=== PATIENT | male | born 1990 | race Caucasian/White ===

== ENCOUNTER 2024-02-10 17:26 | Inpatient (IN) | payer OTHER, SELFPAY ==
[2024-02-10 17:41] VITALS: BP 157/89; PULSE 74; O2SAT 96
[2024-02-10 17:43] VITALS: BMI 36.3
--- NOTE | 2024-02-10 17:44 | ED_ITS ---
HPI - General Adult General Chief complaint: Psychiatric Symptoms Stated complaint: took 8 tabs of LSD, si Time Seen by Provider: 02/10/24 17:44 Source: patient and EMS Mode of arrival: EMS Limitations: no limitations History of Present Illness ED Provider: Juliette Fay PA-C HPI narrative: Patient is a 33 year old assigned male at with a history of mood disorder presenting to the emergency department today with suicidal ideation and LSD use. Patient states that he is chronically suicidal to some extent but it has been much worse lately. Patient states that he was feeling this way before he ingested 5-8 tabs of LSD. Patient states that he is a little nauseous. Patient denies any dizziness, lightheadedness, abdominal pain, vomiting, fever, chills, blurry vision, double vision, loss of vision, chest pain, difficulty breathing, shortness of breath, back pain, night sweats, pain with urination, increased urinary frequency, increased urinary urgency, blood in his urine or stool, syncope or a near syncopal episode, recent trauma or falls, bowel incontinence, bladder incontinence, or any other complaints at this time. Relieving factors: none Exacerbating factors: none Associated symptoms: nausea/vomiting Treatments prior to arrival: none Related Data Home Medications ?Medication ?Instructions ?Recorded ?Confirmed aripiprazole 15 mg tablet (Abilify) 15 mg PO DAILY 02/10/24 02/10/24 cariprazine 3 mg capsule (Vraylar) 3 mg PO DAILY 02/10/24 02/10/24 gabapentin 600 mg tablet 600 mg PO TID 02/10/24 02/10/24 melatonin 3 mg capsule 9 mg PO BEDTIME 02/10/24 02/10/24 multivitamin 1 tab PO DAILY 02/10/24 02/10/24 prazosin 1 mg capsule 1 mg PO BEDTIME 02/10/24 02/10/24 propranolol 20 mg tablet 20 mg PO TID 02/10/24 02/10/24 Allergies Allergy/AdvReac Type Severity Reaction Status Date / Time No Known Allergies Allergy Verified 02/10/24 17:45 Review of Systems 2 Constitutional: Constitutional: Reports no additional constitutional complaints, Denies chills, Denies fever(s) and Denies night sweats Eyes: Eyes: Reports no additional eye complaints, Denies blurry vision, Denies change in vision, Denies diplopia, Denies eye discharge, Denies loss of vision and Denies eye pain ENT: Denies dizziness Cardiovascular: Cardiovascular: Reports no additional cardiovascular complaints, Denies chest pain, Denies lightheadedness, Denies Loss of Consciousness and Denies dyspnea Respiratory: Respiratory: Reports no additional respiratory complaints and Denies dyspnea Gastrointestinal: Gastrointestinal: Reports no additional gastrointestinal complaints, Denies abdominal pain, Denies melena, Denies hematochezia, Denies change in bowel habits and Denies change in stool character Genitourinary: Genitourinary: Reports no additional male genitourinary complaints, Denies hematuria, Denies oliguria, Denies difficulty urinating, Denies dysuria, Denies urinary frequency, Denies urinary hesitancy, Denies urinary incontinence and Denies urinary urgency Musculoskeletal: Musculoskeletal: Reports no additional musculoskeletal complaints, Denies numbness and Denies tingling Neurologic: Denies dizziness, Denies loss of vision, Denies numbness and Denies tingling Psychiatric: Psychiatric: Denies homicidal ideation and Reports suicidal ideation Endocrine: Endocrine: Reports no additional endocrine complaints Hematologic/Lymphatic: Hematologic/Lymphatic: Reports no additional hematologic/lymphatic complaints Allergic/Immunologic: Allergic/Immunologic: Reports no additional allergic/immunologic complaints PMFSH Past Medical History Attestation statement: The following information was validated with the patient. Source: old records reviewed and nursing notes reviewed Social History Social History Smoked in Last 30 Days: Yes Use of substances other than those prescribed or required for medical reasons: Yes Substance Use Type: Hallucinogens Substance Use Frequency: Recent Binge Last Used Substance: Hours (ago) Advance Directives: No Advance Directives Information Provided: No Do you have a plan to hurt others: No Plan Physical Exam ED Vital Signs: Vital Signs - 24 hr 02/10/24 20:05 Temperature 97.4 F Pulse Rate 68 Respiratory Rate 16 Blood Pressure 137/81 Pulse Oximetry 94 Oxygen Delivery Method Room Air BMI result Body Mass Index 36.3 Const General: cooperative, no acute distress, alert and awake Nutritional Appearance: well nourished Orientation/consciousness: patient oriented x3 Limitations: no limitations HENMT Head: Yes normal to inspection and Yes atraumatic Ears: hearing grossly normal bilaterally and external ears normal General nose exam: Normal external nose present, no nasal discharge noted and no epistaxis Face and sinus: Yes normal facial exam, No abrasion and No laceration Mouth: Normal oral and palatal mucosa present, no drooling and no muffled voice Eyes General: appearance normal, both eyes and all related structures Periorbital: periorbital findings normal Eyelids: Yes eyelids normal Conjunctivae: conjunctivae normal Pupils: Equal, round and reactive pupils present EOM: EOMs intact bilaterally Neck Neck: Yes normal visual inspection, Yes full ROM and Yes no lymphadenopathy Chest Chest palpation & inspection: normal inspection of the chest Resp Effort & Inspection: normal respiratory effort and able to speak in complete sentences GI Inspection: Yes normal to inspection Neuro General: patient oriented x3 and moves all extremities Cranial nerves: Yes Equal, round and reactive pupils present Cognition (Neuro): normal cognition Extrem General: Yes normal to inspection, Yes full ROM and Yes capillary refill normal Psych Appearance: grossly normal Mental Status: mental status grossly normal Affect: Sad affect present Attitude: cooperative Thought process: Normal thought process present Thought content: Suicidality present Medications Administered Discontinued Medications Generic Name Dose Route Start Last Admin Trade Name Candida PRN Reason Stop Dose Admin Lorazepam 1 mg 02/10/24 19:42 02/10/24 20:02 Lorazepam 1 Mg Tablet PO 02/10/24 19:43 1 mg ONCE ONE Administration Medical Decision Making Medical Decision Making [facility] Narrative: Patient is a 33 year old assigned male at with a history of a mood disorder presenting to the emergency department today with suicidal ideation and LSD use. Patient's physical exam was as noted in the physical exam portion of this note. Patient's blood work was unremarkable. Patient's urine showed no acute process. Patient's EKG was unremarkable. I explained my physical exam findings as well as all test results to the patient. I answered all questions asked by the patient. Patient was given ODT Zofran and PO Ativan while in the department which he stated helped his symptoms. Patient requested I call his father, Garfield, at [phone]. Unfortunately, he did not answer - I did leave a voicemail requesting him to call back but have not heard back from him at this time. Patient will remain in physician observation until he is evaluated by the CARE team to determine disposition. Differential Diagnosis Differential Diagnoses: The differential diagnosis associated with the presentation includes LSD use Suicidal ideation Depression Admission/Observation Consideration of admission/observation: Escalation of care including admission/observation considered Patient's disposition will be determined after CARE team evaluation. Lab Data [facility] Lab Attestation statement: I reviewed the patient's lab results. My interpretation of these results are in the [facility] Rationale portion of this note. 02/10/24 20:04 02/10/24 20:04 Labs: Lab Results 02/10/24 02/10/24 Range/Units 18:30 20:04 WBC 7.1 (4.8-10.8) X10*3/uL RBC 5.77 (4.60-5.80) X10*6/uL Hgb 16.4 (14.0-18.0) g/dl Hct 46.3 (42.0-52.0) % MCV 80.2 (80.0-98.0) fL MCH 28.4 (27.0-33.0) pg MCHC 35.4 (31.0-36.0) g/dl RDW 12.6 (11.0-16.0) % Plt Count 146 L (160-400) X10*3/uL MPV 8.6 L (9.4-12.4) fL Immature Gran % (Auto) 0.4 (0.0-0.4) % Neut % (Auto) 68.4 (45-73) % Lymph % (Auto) 23.5 (20-40) % [place] % (Auto) 5.5 (2-11) % Eos % (Auto) 1.8 (0-4) % Baso % (Auto) 0.4 (0-2) % Lymph # (Auto) 1.7 (1.2-4.9) X10*3/uL [place] # (Auto) 0.4 (0.1-1.2) X10*3/uL Eos # (Auto) 0.1 (0.0-0.4) X10*3/uL Baso # (Auto) 0.0 (0.0-0.2) X10*3/uL Abs Immat Gran (auto) 0.03 (0.00-0.03) X10*3/uL Absolute Neuts (auto) 4.9 (2.0-8.3) x10*3/uL Absolute Nucleated RBC 0.000 (0.0-0.012) X10*3/uL Nucleated RBC % (auto) 0.0 (0.0-0.2) /100WBC Sodium 141 (135-145) mmol/L Potassium 3.8 (3.3-5.1) mmol/L Chloride 108 (96-108) mmol/L Carbon Dioxide 22 (22-29) mmol/L Anion Gap 15 (12-20) BUN 12 (9-16) mg/dL Creatinine 0.83 (0.5-1.4) mg/dL Estim Creat Clear Calc 166.9 Estimated GFR > 60 Random Glucose 125 H (60-115) mg/dL Calcium 9.6 (8.4-10.2) mg/dL Total Bilirubin 1.1 H (0.0-1.0) mg/dL AST 29 (5-37) U/L ALT 61 H (0-40) U/L Alkaline Phosphatase 64 (39-117) U/L Total Protein 7.4 (6.5-8.0) g/dL Albumin 4.7 (3.5-5.0) g/dL Urine Color Yellow Urine Appearance Clear Urine pH 7.0 (5.0-9.0) Ur Specific [place] 1.020 (1.005-1.025) Urine Protein Negative (Neg-Trace) mg/dL Urine Glucose (UA) Negative (Negative) mg/dL Urine Ketones Negative (Negative) mg/dL Urine Blood Negative (Negative) Urine Nitrite Negative (Negative) Ur Leukocyte Esterase Negative (Negative) Urine Opiates Screen Not Detected (Not Detect) Ur Buprenorphine Scrn Not Detected (Not Detect) ng/mL Ur Oxycodone Screen Not Detected (Not Detect) ng/mL Urine Methadone Screen Not Detected (Not Detect) ng/mL Urine Fentanyl Screen Not Detected (Not Detect) Ur Barbiturates Screen Not Detected (Not Detect) Ur Phencyclidine Scrn Not Detected (Not Detect) Ur Amphetamines Screen Not Detected (Not Detect) U Benzodiazepines Scrn Not Detected (Not Detect) Urine Cocaine Screen Not Detected (Not Detect) U Marijuana (THC) Screen Not Detected (Not Detect) Ethyl Alcohol < 10 mg/dL Independent Interpretation I performed an independent interpretation of an: EKG Interpretation: Vent. Rate: 060 BPM Atrial Rate: 060 BPM P-R Int: 144 ms QRS Dur: 092 ms QT Int: 410 ms P-R-T Axes: 069 049 038 degrees QTc Int: 410 ms Normal sinus rhythm with sinus arrhythmia Normal ECG No previous ECGs available DD/ 34 Independent Historian Clinical information obtained from an independent historian. History obtained from or confirmed by: EMS (EMS provided additional history and confirmed the history provided by the patient.) Critical Care Time Critical Care Time Critical Care Time: Yes Total Critical Care Time: 32 Attestation: I spent 32 minutes of Critical Care Time with this patient. This does not include time spent on separately reported billable procedures. Discharge Plan Discharge Clinical Impression: Suicidal ideation, Lysergic acid diethylamide (LSD) reaction Patient Disposition: Still a Patient Prescriptions: No Action multivitamin [Multi-Vitamin] Tablet 1 tab PO DAILY gabapentin 600 mg Tablet 600 mg PO TID prazosin 1 mg Capsule 1 mg PO BEDTIME propranolol 20 mg Tablet 20 mg PO TID aripiprazole [Abilify] 15 mg Tablet 15 mg PO DAILY Vraylar 3 mg Capsule 3 mg PO DAILY melatonin 3 mg Capsule 9 mg PO BEDTIME Interventions: [place]-Suicide Risk Severity Scale Last Done: 02/10/24 17:50 Print Language: Setswana
--- NOTE | 2024-02-10 17:51 | PC.NURSE ---
Patient took 2 tabs of acid at approx 1500 and then another 6 tabs of acid at approx 1600 today. Patient reporting incident as a cry for help . Denies acid use as suicide attempt. Does endorse SI with no plan.
--- NOTE | 2024-02-10 17:52 | ECG_ITS ---
Test Reason : qt check Blood Pressure : / mmHG Vent. Rate : 060 BPM Atrial Rate : 060 BPM P-R Int : 144 ms QRS Dur : 092 ms QT Int : 410 ms P-R-T Axes : 069 049 038 degrees QTc Int : 410 ms Normal sinus rhythm with sinus arrhythmia Normal ECG No previous ECGs available Referred By: Juliette Fay Electronically Signed By:Frandy De La Vega
[2024-02-10 18:36] LABS: Appearance Urine Clear; Color Urine Yellow; Glucose Urine UA Negative (Negative); Leukocyte Esterase Urine Negative (Negative); Nitrite Urine Negative (Negative); Urine Blood Negative (Negative); Urine Ketones Negative (Negative); Urine Protein Negative (Neg-Trace)
[2024-02-10 18:53] LABS: Amphetamine Screen Urine Not Detected (Not Detect); Barbiturates, Urine Not Detected (Not Detect); Benzodiazepines Screen Urine Not Detected (Not Detect); Buprenorphine Scr Not Detected (Not Detect); Cannabinoid Screen Urine Not Detected (Not Detect); Cocaine Screen Urine Not Detected (Not Detect); Fentanyl, urine Not Detected (Not Detect); Methadone Screen, Urine Not Detected (Not Detect); Opiate Screen Urine Not Detected (Not Detect); Oxycodone Screen Urine Not Detected (Not Detect); Phencyclidine Screen Urine Not Detected (Not Detect)
--- NOTE | 2024-02-10 19:05 | PC.NURSE ---
patient appears to be laying flat on his bed, appears in no distress presently prior nurse informs me he had ingested hallucinogenics, appears in no distress presently.
--- NOTE | 2024-02-10 19:53 | MHC.CARE ---
Security Assurance Analyst approached patient in POd to introduce self-patient states 'I am not sober right now' and requests to talk with clinician later. Reports distressing level of paranoia and anxiety; RN aware and is awaiting MD order for patient. Patient not currently clinically appropriate to assess.
[2024-02-10] MEDS: LORazepam 1 MG TABLET PO (20:02)
[2024-02-10 20:05] VITALS: BP 137/81; PULSE 68; RESP 16; TEMP 36.3; O2SAT 94
[2024-02-10 20:14] LABS: Hematocrit 46.3 % (42.0-52.0); Neutrophils Absolute Auto 4.9 x10*3/uL (2.0-8.3); PLT CLUMP 1; Red Cell Distribution Width 12.6 % (11.0-16.0); SCAN SMEAR FLAG 1
[2024-02-10 20:15] LABS: Basophils Percent Auto 0.4 % (0-2); Eosinophils Absolute Auto 0.1 X10*3/uL (0.0-0.4); Eosinophils Percent Auto 1.8 % (0-4); Hemoglobin 16.4 g/dl (14.0-18.0); Imm Gran Abs Auto 0.03 X10*3/uL (0.00-0.03); Imm Gran Pct Auto 0.4 % (0.0-0.4); Lymphocytes Absolute Auto 1.7 X10*3/uL (1.2-4.9); Lymphocytes Percent Auto 23.5 % (20-40); Mean Corpuscular HGB Conc 35.4 g/dl (31.0-36.0); Mean Corpuscular Hemoglobin 28.4 pg (27.0-33.0); Mean Corpuscular Volume 80.2 fL (80.0-98.0); Mean Platelet Volume 8.6 fL (9.4-12.4); Monocytes Absolute Auto 0.4 X10*3/uL (0.1-1.2); Monocytes Percent Auto 5.5 % (2-11); Neutrophils Percent Auto 68.4 % (45-73); Red Blood Count 5.77 X10*6/uL (4.60-5.80)
[2024-02-10 20:32] LABS: Alanine Aminotransferase 61 U/L (0-40); Albumin Level 4.7 g/dL (3.5-5.0); Alkaline Phosphatase 64 U/L (39-117); Anion Gap 15 (12-20); Aspartate Amino Transferase 29 U/L (5-37); Bilirubin Total 1.1 mg/dL (0.0-1.0); Blood Urea Nitrogen 12 mg/dL (9-16); Calcium 9.6 mg/dL (8.4-10.2); Carbon Dioxide 22 mmol/L (22-29); Chloride 108 mmol/L (96-108); Creatinine Clr Calc Pharmacy 166.9; Estimated Glomerular Filt Rate > 60; Ethanol < 10 mg/dL; Glucose Random 125 mg/dL (60-115); MANUAL DIFF FLAG NO; Platelet Count 146 X10*3/uL (160-400); Potassium 3.8 mmol/L (3.3-5.1); Sodium 141 mmol/L (135-145); Total Protein 7.4 g/dL (6.5-8.0); White Blood Count 7.1 X10*3/uL (4.8-10.8)
--- NOTE | 2024-02-10 20:33 | MHC.CARE ---
Collateral contact made to patient's father Killian Land. He reports that he and his received an emailed suicide note from patient at approximately 4.45 pm this afternoon, which was prior to his ingesting multiple tablets of LSD in a Suicide Attempt. Father reports patient has struggled with mental health and polysubstance use issues since he was in high school and has had at least 3-4 attempts by overdose and multiple intervention(s)/treatment(s) over the years;most recently he self-presented to court for a Section 35 and has been residing at [facility] for the past 1-2 months. Patient has a 12 year-old daughter who is currently being raised by his parents due to his ongoing mental health and substance use issues and this is an ongoing, precipitant factor impacting his negative feelings about himself. Due to content of conversation with patient's father, program writer placed patient on a Section 12a and placed in chart. ED Attending Rosemary Marshall MD updated. Patient is not clinically appropriate to be assessed at time of collateral contact. Will assess when able to participate meaningfully and when sober, and per patient request.
[2024-02-10 20:38] LABS: Acetaminophen LAB < 3 mcg/mL (<30); Salicylate < 5.0 mg/dL (15-30)
[2024-02-10] MEDS: Gabapentin 600 MG TABLET PO (21:56)
[2024-02-10] MEDS: Melatonin 3 MG TABLET 9 MG PO (21:56)
[2024-02-10] MEDS: Propranolol HCL 20 MG TABLET PO (21:58)
[2024-02-10] MEDS: Prazosin HCL 1 MG CAPSULE PO (21:58)
[2024-02-11 05:09] VITALS: BP 119/70; PULSE 60; TEMP 36.3; O2SAT 94
--- NOTE | 2024-02-11 06:54 | PC.NURSE ---
Assumed care of patient at 0645. Patient is observed resting quietly in their bed. No signs of distress. Breathing is even and unlabored.
[2024-02-11 07:44] VITALS: BP 116/71; PULSE 79; RESP 16; TEMP 36; O2SAT 95
--- NOTE | 2024-02-11 08:23 | MHC.EDTECH ---
Patient given breakfast
[2024-02-11] MEDS: Gabapentin 600 MG TABLET PO ×3 (08:26→20:37)
[2024-02-11] MEDS: Cariprazine HCl 3 MG CAPSULE PO (08:26)
[2024-02-11] MEDS: Propranolol HCL 20 MG TABLET PO ×3 (08:26→20:37)
[2024-02-11] MEDS: Multivitamin TABLET 1 TAB PO (08:26)
--- NOTE | 2024-02-11 08:28 | MHC.EDTECH ---
Patient took a shower
[2024-02-11] MEDS: ARIPiprazole 15 MG TABLET PO (09:17)
[2024-02-11] MEDS: hydrOXYzine HCL 50 MG TABLET PO ×3 (10:50→20:37)
[2024-02-11 14:32] VITALS: BP 108/63; PULSE 88; RESP 18; TEMP 36.7; O2SAT 97
[2024-02-11 20:35] VITALS: BP 102/64; PULSE 64; RESP 16; TEMP 37.2; O2SAT 98
[2024-02-11] MEDS: Prazosin HCL 1 MG CAPSULE PO (20:37)
[2024-02-11] MEDS: Melatonin 3 MG TABLET 9 MG PO (20:38)
[2024-02-12 02:13] VITALS: BP 107/70; PULSE 74; RESP 16; TEMP 37.1; O2SAT 98
--- NOTE | 2024-02-12 05:25 | PC.NURSE ---
Pt sleeping at the bedside. No apparent distress noted. Breaths are even regular and unlabored with equal chest rises. Monitoring is ongoing.
[2024-02-12] MEDS: Gabapentin 600 MG TABLET PO ×3 (07:15→21:34)
[2024-02-12] MEDS: hydrOXYzine HCL 50 MG TABLET PO ×4 (07:15→21:34)
[2024-02-12] MEDS: Cariprazine HCl 3 MG CAPSULE PO (07:16)
[2024-02-12] MEDS: Multivitamin TABLET 1 TAB PO (07:16)
[2024-02-12 07:17] VITALS: BP 107/69; PULSE 63
[2024-02-12] MEDS: Propranolol HCL 20 MG TABLET PO ×3 (07:17→21:34)
[2024-02-12] MEDS: ARIPiprazole 15 MG TABLET PO (08:14)
[2024-02-12 08:38] VITALS: BP 107/69; PULSE 76; RESP 16; TEMP 36.6; O2SAT 94
--- NOTE | 2024-02-12 11:23 | PC.NURSE ---
per provider okay to give hydroxzine early
--- NOTE | 2024-02-12 12:17 | PC.NURSE ---
mainly has kept in his room, asked for morning meds early as he was anxious and again asked for atarax early as he was anxious, Dr Dockery informed and said it was ok to give the 1pm vistaril early. pt has been polite and cooperative and appears calm
[2024-02-12 14:00] VITALS: BP 117/65; PULSE 81; RESP 18; TEMP 36.4; O2SAT 98
[2024-02-12 16:39] VITALS: BP 117/65; PULSE 83
--- NOTE | 2024-02-12 16:59 | PC.ADMIT ---
Thuan Land is a 33 year old male who was admitted at 13:50 from [facility] for treatment of SI. Thuan ingested LSD just prior to admission after 5 months of sobriety from substance and alcohol use. He remains sober from alcohol. Thuan states stressors leading to this admission include arguing with his parents over visitation of his 12 year old daughter from which his parents retain custody of. Thuan states that frustration lead to relapse and threats of suicide including writing a note to his parents. Thuan still has some vague SI with no plan as of today and will seek help if the circumstances change. Thuan was residing at [facility] in [place] prior to admission and is unsure if he will be welcomed back or if he wants to go back for that matter, he does not like the rules that the house has and feels that sober housing may be better. Skin check was unremarkable accept for mild break out on his chest which he thinks may be from EKG adhesive but does not align with sticker placement. VS taken, WNL. Thuan presents as flat and subdued, but pleasant. No behaviors reported in the ED or on the unit once oriented. Thuan signed a CV on admission and is placed on 15 minute checks for safety. Admission completed.
[2024-02-12] MEDS: Nicotine Polacrilex 2 MG GUM 4 MG BUCCAL (17:38)
[2024-02-12 20:00] VITALS: BP 122/68; PULSE 82; RESP 17; TEMP 36.7; O2SAT 98
[2024-02-12] MEDS: Melatonin 3 MG TABLET 9 MG PO (21:34)
[2024-02-12] MEDS: traZODone HCL 50 MG TABLET PO (21:35)
[2024-02-12] MEDS: Prazosin HCL 1 MG CAPSULE PO (21:35)
[2024-02-13 08:00] VITALS: BP 117/62; PULSE 59; RESP 16; TEMP 36.4; O2SAT 93
[2024-02-13 08:52] VITALS: BP 114/60; PULSE 102; RESP 16
[2024-02-13 08:54] LABS: Estimated Average Glucose 103 mg/dL; Hemoglobin A1c % 5.2 % (<6.0)
[2024-02-13] MEDS: Propranolol HCL 20 MG TABLET PO ×3 (08:55→20:57)
[2024-02-13] MEDS: Multivitamin TABLET 1 TAB PO (08:55)
[2024-02-13] MEDS: hydrOXYzine HCL 50 MG TABLET PO ×4 (08:55→20:57)
[2024-02-13] MEDS: Cariprazine HCl 3 MG CAPSULE PO (08:55)
[2024-02-13] MEDS: Gabapentin 600 MG TABLET PO ×3 (08:55→20:56)
[2024-02-13] MEDS: ARIPiprazole 15 MG TABLET PO (08:55)
[2024-02-13 09:01] LABS: Cholesterol 142 mg/dL (<200); HDL Cholesterol 37 mg/dL (>40); LDL Cholesterol Calculated 68 mg/dL (<100); Magnesium 2.1 mg/dL (1.6-2.6); Triglycerides 185 mg/dL (<150)
[2024-02-13 09:31] LABS: Folate 10.1 ng/mL (> or = 4.0); Vitamin B12 793 pg/mL (200-900)
[2024-02-13 09:54] LABS: Free T4 (Free Thyroxine) 0.96 ng/dL (0.71-1.85); Thyroid Stimulating Hormone 1.23 uIU/mL (0.32-4.0)
--- NOTE | 2024-02-13 10:59 | HO.PSYADMNOT ---
HPI Date of Service: 02/13/24 Chief Complaint: LSD ingestion, SI Sources of Information: patient interviewed, chart reviewed and crisis/core team assessment reviewed HPI Subjective Notes: Ndiaye Warning and Conditional Voluntary Healthcare Proxy: No Guardianship: No Medical Problems Affecting Mental Status: No Narrative: 33 yo male, history of bipolar disorder, ADHD, polysubstance use disorder to ER after taking LSD, sending his parents emails endorsing SI with plan and intent. Reports sobriety for 5 months, living at [facility] for ~2 months and is not satisfied with the program. Parents have custody of his daughter, Gina, age 12, and will not allow him contact with her and they have stopped talking with him, telling him he needs to manage his issues. States he became angry with them, cursed them was frustrated and wrote a suicide note as a cry for help. States he needs a sober house or [facility] as [facility] is just not working for him. States his parents have told him he needs to figure out solutions to his issues and they feel victimized by pt's using substances Reports sleep and appetite are intact Hx andres ~8 years ago when on Prozac-gambling, sexually provocative, awake and talkative for several days SI-denies currently, hx SA when daughter's mother - OD Xanax, ETOH. Past Psychiatric History: IP: Pt believes 5 by history, the most recent being [facility] 4 months ago where he was using crystal meth was awake for 4 days and paranoid OP: CHD- new therapist [facility] and Dr. Langston Medical Evaluation Reviewed: Yes [facility] Medical History (Updated 02/13/24 @ 17:25 by Ann Bowling, GANTRY CRANE OPERATOR) ADHD Polysubstance use disorder Bipolar disorder Family History: a cousin has substance use issues Social History: Born in [place], [place]. Raised in [place] until age 17, then to [place]. 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 Daughters mother of an OD ~6 years ago. 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[place] [facility] Trauma History: Loss of daughter's mother Diagnostics Vital Signs (24Hr): Vital Signs - 24 hr 02/12/24 14:00 02/12/24 16:39 02/12/24 20:00 Temperature 97.6 F 98.0 F Pulse Rate 81 83 82 Respiratory Rate 18 17 Blood Pressure 117/65 117/65 122/68 Pulse Oximetry 98 98 Oxygen Delivery Method Room Air Room Air 02/13/24 08:00 02/13/24 08:52 Temperature 97.5 F Pulse Rate 59 102 H Respiratory Rate 16 16 Blood Pressure 117/62 114/60 Pulse Oximetry 93 Oxygen Delivery Method Room Air BMI result Body Mass Index 36.3 Labs 02/10/24 20:04 02/10/24 20:04 Labs: Laboratory Results - last 48 hr 02/13/24 08:27 Estimat Average Glucose 103 Hemoglobin A1c % 5.2 Magnesium 2.1 Triglycerides 185 H Cholesterol 142 LDL Cholesterol, Calc 68 HDL Cholesterol 37 L Vitamin B12 793 Folate 10.1 TSH 1.23 Free T4 0.96 Meds/Allergies Meds Home Medications ?Medication ?Instructions ?Recorded ?Confirmed ?Type aripiprazole 15 mg tablet (Abilify) 15 mg PO DAILY 02/10/24 02/10/24 History cariprazine 3 mg capsule (Vraylar) 3 mg PO DAILY 02/10/24 02/10/24 History gabapentin 600 mg tablet 600 mg PO TID 02/10/24 02/10/24 History melatonin 3 mg capsule 9 mg PO BEDTIME 02/10/24 02/10/24 History multivitamin 1 tab PO DAILY 02/10/24 02/10/24 History prazosin 1 mg capsule 1 mg PO BEDTIME 02/10/24 02/10/24 History propranolol 20 mg tablet 20 mg PO TID 02/10/24 02/10/24 History Allergies Allergies Allergy/AdvReac Type Severity Reaction Status Date / Time bupropion [From Wellbutrin] AdvReac Severe agitation Verified 02/13/24 17:17 Mental Status Exam Mental Status Exam Patient Appearance: Appropriate Patient Orientation: Person, Place, Time and Situation Level of Consciousness: Alert Patient Behavior: Talkative and Good Eye Contact Mood Description: Withdrawn and Depressed Affect Description: Flat Patient Cognition Impaired: No Speech Pattern: Spontaneous Speech Memory Description: Intact Hallucinations: None Delusions: Not Present Thought Process: Rumination Thought Content: positive for Circumstantial and positive for Perseveration Depressive Symptoms: Thoughts of /Suicide (denies) Judgement: Fair Assessment & Plan Assessment & Plan (1) Bipolar disorder: Status: Acute Code(s): F31.9 - Bipolar disorder, unspecified (2) Polysubstance use disorder: Status: Acute Code(s): F19.90 - Other psychoactive substance use, unspecified, uncomplicated (3) ADHD: Status: Acute Code(s): F90.9 - Attention-deficit hyperactivity disorder, unspecified type Plan Bipolar Disorder, ADHD, Polysubstance Use Disorder. Plan: Admit, CV 15 minute checks DC Abilify Increase Vraylar to 4.5 mg daily Collateral Contact Discharge planning Patient educated on: medication risk/benefits and therapeutic strategies Reason for continued inpatient stay Substantial Risk for: rapid decompensation Statement Statement: I have reviewed the history and physical and performed a pertinent examination on my patient. No changes have occurred unless specified. If the History and Physical was not performed prior to admission, the Hospitalist's service will be consulted for completing the admission physical. Time Spent With Patient Time: Total time managing care of this patient today ____ minutes.
[2024-02-13] MEDS: Nicotine 21 MG PATCH.TD24 TRANSDERMA (11:23)
[2024-02-13 14:49] VITALS: BP 115/63
[2024-02-13] MEDS: Gabapentin 100 MG CAPSULE PO ×2 (14:50→20:56)
[2024-02-13 20:00] VITALS: BP 109/52; PULSE 77; TEMP 36.8; O2SAT 97
[2024-02-13] MEDS: Melatonin 3 MG TABLET 9 MG PO (20:55)
[2024-02-13 20:57] VITALS: BP 108/62; PULSE 95
[2024-02-13] MEDS: Prazosin HCL 1 MG CAPSULE PO (20:57)
[2024-02-13] MEDS: traZODone HCL 50 MG TABLET PO (20:57)
[2024-02-13] MEDS: lamoTRIgine 25 MG TABLET PO (20:57)
[2024-02-14 08:00] VITALS: BP 92/51; PULSE 75; TEMP 36.8; O2SAT 95
[2024-02-14 08:42] VITALS: BP 117/61; PULSE 91; RESP 18; O2SAT 98
[2024-02-14] MEDS: Nicotine 21 MG PATCH.TD24 TRANSDERMA (08:43)
[2024-02-14] MEDS: Gabapentin 600 MG TABLET PO ×3 (08:44→20:50)
[2024-02-14] MEDS: Multivitamin TABLET 1 TAB PO (08:44)
[2024-02-14] MEDS: Cariprazine HCl 1.5 MG CAPSULE 4.5 MG PO (08:44)
[2024-02-14] MEDS: Propranolol HCL 20 MG TABLET PO ×3 (08:44→20:50)
[2024-02-14] MEDS: hydrOXYzine HCL 50 MG TABLET PO ×4 (08:44→20:49)
[2024-02-14] MEDS: Gabapentin 100 MG CAPSULE PO ×3 (08:44→20:49)
[2024-02-14] MEDS: Miconazole Nitrate 2% Powder 85 GM Bottle 1 APPL TOPICAL ×2 (11:47→20:58)
[2024-02-14] MEDS: QUEtiapine Fumarate 50 MG TABLET PO (13:38)
--- NOTE | 2024-02-14 14:41 | HO.PSYCHPN ---
Subjective Subjective Date of Service: 02/14/24 Reason For Visit: LSD ingestion, SI Subjective Notes: Conditional Voluntary Healthcare Proxy: No Guardianship: No Medical Problems Affecting Mental Status: No Interim History: Argument with parents today on the phone. Very anxious after this discussion. Seroquel prn initiated, which he reports was helpful. Declines offer to make contact with parents at this time. Medication Compliance: Yes Side effects from medications: No Attending Groups: Intermittent Review of Systems Acute medical concerns: No Medical Review of Systems: unchanged Review of Systems Review of Systems Yes all other systems are reviewed and are negative Mental Status Exam Mental Status Exam Patient Appearance: Appropriate Patient Orientation: Person, Place, Time and Situation Level of Consciousness: Alert Patient Behavior: Talkative and Good Eye Contact Mood Description: Withdrawn and Depressed Affect Description: Flat Patient Cognition Impaired: No Speech Pattern: Spontaneous Speech Memory Description: Intact Hallucinations: None Delusions: Not Present Thought Process: Rumination Thought Content: positive for Circumstantial and positive for Perseveration Depressive Symptoms: Thoughts of /Suicide (denies) Judgement: Fair Diagnostics Vital Signs (24Hr): Vital Signs - 24 hr 02/13/24 14:49 02/13/24 20:00 02/13/24 20:57 Temperature 98.2 F Pulse Rate 77 Respiratory Rate Blood Pressure 115/63 109/52 L 108/62 Pulse Oximetry 97 Oxygen Delivery Method Room Air 02/13/24 20:57 02/14/24 08:00 02/14/24 08:42 Temperature 98.3 F Pulse Rate 95 75 91 Respiratory Rate 18 Blood Pressure 108/62 92/51 L 117/61 Pulse Oximetry 95 98 Oxygen Delivery Method Room Air Room Air BMI result Body Mass Index 36.3 Labs 02/10/24 20:04 02/10/24 20:04 Labs: Laboratory Results - last 48 hr 02/13/24 08:27 Estimat Average Glucose 103 Hemoglobin A1c % 5.2 Magnesium 2.1 Triglycerides 185 H Cholesterol 142 LDL Cholesterol, Calc 68 HDL Cholesterol 37 L Vitamin B12 793 Folate 10.1 TSH 1.23 Free T4 0.96 Medications Medications Current Medications Acetaminophen (Acetaminophen 325 Mg Tablet) 650 mg PO Q6H PRN PRN Reason: Headache/Pain Mild Scale (1-3) Al Hydroxide/Mg Hydroxide (Magnesium Hydrox/Alum Hydrox 30 Ml Oral.Susp) 30 ml PO Q6H PRN PRN Reason: Heartburn/Nausea Cariprazine (Cariprazine Hcl 1.5 Mg Capsule) 4.5 mg PO DAILY [facility] Last Admin: 02/14/24 08:44 Dose: 4.5 mg Gabapentin (Gabapentin 600 Mg Tablet) 600 mg PO TID [facility] Last Admin: 02/14/24 08:44 Dose: 600 mg Gabapentin (Gabapentin 100 Mg Capsule) 100 mg PO TID [facility] Last Admin: 02/14/24 08:44 Dose: 100 mg Hydroxyzine HCl (Hydroxyzine Hcl 50 Mg Tablet) 50 mg PO QID [facility] Last Admin: 02/14/24 13:11 Dose: 50 mg Lamotrigine (Lamotrigine 25 Mg Tablet) 25 mg PO BEDTIME [facility] Last Admin: 02/13/24 20:57 Dose: 25 mg Magnesium Hydroxide (Milk Of Magnesia 30 Ml Oral.Susp) 30 ml PO DAILY PRN PRN Reason: Constipation Melatonin (Melatonin 3 Mg Tablet) 9 mg PO BEDTIME [facility] Last Admin: 02/13/24 20:55 Dose: 9 mg Miconazole Nitrate (Miconazole Nitrate 2% Powder 85 Gm Bottle) 1 appl TOPICAL BID [facility]; Protocol Last Admin: 02/14/24 11:47 Dose: 1 appl Multivitamins/Vitamin C (Multivitamin Tablet) 1 tab PO DAILY [facility] Last Admin: 02/14/24 08:44 Dose: 1 tab Nicotine (Nicotine 21 Mg Patch.Td24) 21 mg TRANSDERMA DAILY [facility] Last Admin: 02/14/24 08:43 Dose: 21 mg Nicotine Polacrilex (Nicotine Polacrilex 2 Mg Gum) 4 mg BUCCAL Q2H PRN PRN Reason: Nicotine Cravings Last Admin: 02/12/24 17:38 Dose: 2 mg Prazosin HCl (Prazosin Hcl 1 Mg Capsule) 1 mg PO BEDTIME [facility]; Protocol Last Admin: 02/13/24 20:57 Dose: 1 mg Propranolol HCl (Propranolol Hcl 20 Mg Tablet) 20 mg PO TID [facility]; Protocol Last Admin: 02/14/24 08:44 Dose: 20 mg Quetiapine Fumarate (Quetiapine Fumarate 50 Mg Tablet) 50 mg PO TID PRN PRN Reason: agitation, anxiety Last Admin: 02/14/24 13:38 Dose: 50 mg Trazodone HCl (Trazodone Hcl 50 Mg Tablet) 50 mg PO BEDTIME [facility] PRN PRN Reason: Insomnia Last Admin: 02/13/24 20:57 Dose: 50 mg Allergies Allergies Allergy/AdvReac Type Severity Reaction Status Date / Time bupropion [From Wellbutrin] AdvReac Severe agitation Verified 02/13/24 17:17 Assessment & Plan Assessment & Plan (1) Bipolar disorder: Status: Acute Code(s): F31.9 - Bipolar disorder, unspecified (2) Polysubstance use disorder: Status: Acute Code(s): F19.90 - Other psychoactive substance use, unspecified, uncomplicated (3) ADHD: Status: Acute Code(s): F90.9 - Attention-deficit hyperactivity disorder, unspecified type Plan Bipolar Disorder, ADHD, Polysubstance Use Disorder. Plan: Admit, CV 15 minute checks DC Abilify Increase Vraylar to 4.5 mg daily Collateral Contact Discharge planning 02/14/24 Seroquel prn for anxiety Reason for continued inpatient stay Substantial Risk for: rapid decompensation Time Spent With Patient Time: Total time managing care of this patient today ____ minutes.
[2024-02-14 16:11] VITALS: BP 120/76; PULSE 93; RESP 16; TEMP 36.9; O2SAT 93
[2024-02-14 20:00] VITALS: BP 120/79; PULSE 79; RESP 16; TEMP 36.4; O2SAT 95
[2024-02-14 20:48] VITALS: BP 120/79
[2024-02-14] MEDS: Prazosin HCL 1 MG CAPSULE PO (20:48)
[2024-02-14] MEDS: lamoTRIgine 25 MG TABLET PO (20:49)
[2024-02-14] MEDS: Melatonin 3 MG TABLET 9 MG PO (20:49)
[2024-02-14 20:50] VITALS: BP 120/79; PULSE 79
[2024-02-14] MEDS: traZODone HCL 50 MG TABLET PO (20:50)
[2024-02-14] MEDS: Acetaminophen 325 MG TABLET 650 MG PO (20:51)
[2024-02-15] MEDS: traZODone HCL 50 MG TABLET PO (00:14)
[2024-02-15 08:52] VITALS: BP 120/68; PULSE 92; RESP 18; TEMP 36.3; O2SAT 96
[2024-02-15] MEDS: Nicotine 21 MG PATCH.TD24 TRANSDERMA (08:53)
[2024-02-15] MEDS: Miconazole Nitrate 2% Powder 85 GM Bottle 1 APPL TOPICAL (08:54)
[2024-02-15] MEDS: Gabapentin 600 MG TABLET PO ×3 (08:55→21:11)
[2024-02-15] MEDS: Multivitamin TABLET 1 TAB PO (08:55)
[2024-02-15] MEDS: Gabapentin 100 MG CAPSULE PO ×3 (08:55→21:10)
[2024-02-15] MEDS: Cariprazine HCl 1.5 MG CAPSULE 4.5 MG PO (08:55)
[2024-02-15] MEDS: Propranolol HCL 20 MG TABLET PO ×3 (08:55→21:10)
[2024-02-15 11:23] VITALS: BMI 37.3
[2024-02-15] MEDS: hydrOXYzine HCL 50 MG TABLET PO ×2 (12:53→21:12)
[2024-02-15] MEDS: QUEtiapine Fumarate 50 MG TABLET PO (13:24)
[2024-02-15 14:52] VITALS: BP 108/62; PULSE 98
[2024-02-15] MEDS: LORazepam 1 MG TABLET 2 MG PO (15:19)
--- NOTE | 2024-02-15 17:00 | P.PNPSI_ITS ---
Subjective Subjective Date of Service: 02/15/24 Reason For Visit: LSD ingestion, SI Subjective Notes: Conditional Voluntary Healthcare Proxy: No Guardianship: No Medical Problems Affecting Mental Status: No Interim History: Reports nightmares after taking Trazodone last night. Will transition to a Mirtazapine trial. Discussed discord with parents on 02/13. States they no longer want to talk with him and they do not believe in medical treatment, psychiatric treatment or that this is a disease pt struggles with but his will. Discussed [facility] and his return. Discussed the structure there and how is can be very helpful in moving pt forward in recovery. Medication Compliance: Yes Side effects from medications: No Attending Groups: Intermittent Review of Systems Acute medical concerns: No Medical Review of Systems: unchanged Review of Systems Review of Systems Yes all other systems are reviewed and are negative Mental Status Exam Mental Status Exam Patient Appearance: Appropriate Patient Orientation: Person, Place, Time and Situation Level of Consciousness: Alert Patient Behavior: Talkative and Good Eye Contact Mood Description: Withdrawn, Depressed, Anxious and Apprehensive Affect Description: Anxious, Flat and Apprehensive Patient Cognition Impaired: No Speech Pattern: Spontaneous Speech Memory Description: Intact Hallucinations: None Delusions: Not Present Thought Process: Rumination Thought Content: positive for Circumstantial and positive for Perseveration Depressive Symptoms: Thoughts of /Suicide (denies) Judgement: Fair Diagnostics Vital Signs (24Hr): Vital Signs - 24 hr 02/14/24 20:00 02/14/24 20:48 02/14/24 20:50 Temperature 97.6 F Pulse Rate 79 79 Respiratory Rate 16 Blood Pressure 120/79 120/79 120/79 Pulse Oximetry 95 Oxygen Delivery Method Room Air 02/15/24 08:52 02/15/24 14:52 Temperature 97.3 F Pulse Rate 92 98 Respiratory Rate 18 Blood Pressure 120/68 108/62 Pulse Oximetry 96 Oxygen Delivery Method Room Air BMI result Body Mass Index 37.3 Labs 02/10/24 20:04 02/10/24 20:04 Medications Medications Current Medications Acetaminophen (Acetaminophen 325 Mg Tablet) 650 mg PO Q6H PRN PRN Reason: Headache/Pain Mild Scale (1-3) Last Admin: 02/14/24 20:51 Dose: 650 mg Al Hydroxide/Mg Hydroxide (Magnesium Hydrox/Alum Hydrox 30 Ml Oral.Susp) 30 ml PO Q6H PRN PRN Reason: Heartburn/Nausea Cariprazine (Cariprazine Hcl 1.5 Mg Capsule) 4.5 mg PO DAILY [facility] Last Admin: 02/15/24 08:55 Dose: 4.5 mg Gabapentin (Gabapentin 600 Mg Tablet) 600 mg PO TID [facility] Last Admin: 02/15/24 14:53 Dose: 600 mg Gabapentin (Gabapentin 100 Mg Capsule) 100 mg PO TID [facility] Last Admin: 02/15/24 14:53 Dose: 100 mg Hydroxyzine HCl (Hydroxyzine Hcl 50 Mg Tablet) 50 mg PO QID [facility] Last Admin: 02/15/24 12:53 Dose: 50 mg Lamotrigine (Lamotrigine 25 Mg Tablet) 25 mg PO BEDTIME [facility] Last Admin: 02/14/24 20:49 Dose: 25 mg Magnesium Hydroxide (Milk Of Magnesia 30 Ml Oral.Susp) 30 ml PO DAILY PRN PRN Reason: Constipation Melatonin (Melatonin 3 Mg Tablet) 9 mg PO BEDTIME [facility] Last Admin: 02/14/24 20:49 Dose: 9 mg Miconazole Nitrate (Miconazole Nitrate 2% Powder 85 Gm Bottle) 1 appl TOPICAL BID [facility]; Protocol Last Admin: 02/15/24 08:54 Dose: 1 appl Mirtazapine (Mirtazapine 7.5 Mg Tablet) 7.5 mg PO BEDTIME [facility] Multivitamins/Vitamin C (Multivitamin Tablet) 1 tab PO DAILY [facility] Last Admin: 02/15/24 08:55 Dose: 1 tab Nicotine (Nicotine 21 Mg Patch.Td24) 21 mg TRANSDERMA DAILY [facility] Last Admin: 02/15/24 08:53 Dose: 21 mg Nicotine Polacrilex (Nicotine Polacrilex 2 Mg Gum) 4 mg BUCCAL Q2H PRN PRN Reason: Nicotine Cravings Last Admin: 02/12/24 17:38 Dose: 2 mg Prazosin HCl (Prazosin Hcl 1 Mg Capsule) 1 mg PO BEDTIME [facility]; Protocol Last Admin: 02/14/24 20:48 Dose: 1 mg Propranolol HCl (Propranolol Hcl 20 Mg Tablet) 20 mg PO TID [facility]; Protocol Last Admin: 02/15/24 14:53 Dose: 20 mg Quetiapine Fumarate (Quetiapine Fumarate 50 Mg Tablet) 50 mg PO TID PRN PRN Reason: agitation, anxiety Last Admin: 02/15/24 13:24 Dose: 50 mg Allergies Allergies Allergy/AdvReac Type Severity Reaction Status Date / Time bupropion [From Wellbutrin] AdvReac Severe agitation Verified 02/13/24 17:17 Assessment & Plan Assessment & Plan (1) Bipolar disorder: Status: Acute Code(s): F31.9 - Bipolar disorder, unspecified (2) Polysubstance use disorder: Status: Acute Code(s): F19.90 - Other psychoactive substance use, unspecified, uncomplicated (3) ADHD: Status: Acute Code(s): F90.9 - Attention-deficit hyperactivity disorder, unspecified type Plan Bipolar Disorder, ADHD, Polysubstance Use Disorder. Plan: Admit, CV 15 minute checks DC Abilify Increase Vraylar to 4.5 mg daily Collateral Contact Discharge planning 02/14/24 Seroquel prn for anxiety 02/15/24 Discontinue Trazodone Mirtazapine 7.5 mg HS Reason for continued inpatient stay Substantial Risk for: rapid decompensation Time Spent With Patient Time: Total time managing care of this patient today ____ minutes.
[2024-02-15 20:00] VITALS: BP 111/58; PULSE 68; TEMP 36.1; O2SAT 94
[2024-02-15] MEDS: Melatonin 3 MG TABLET 9 MG PO (21:09)
[2024-02-15] MEDS: Mirtazapine 7.5 MG TABLET PO (21:10)
[2024-02-15] MEDS: lamoTRIgine 25 MG TABLET PO (21:11)
[2024-02-15] MEDS: Prazosin HCL 1 MG CAPSULE PO (21:11)
[2024-02-16 08:00] VITALS: BP 113/67; PULSE 74; TEMP 36.6; O2SAT 95
[2024-02-16] MEDS: Nicotine 21 MG PATCH.TD24 TRANSDERMA (08:43)
[2024-02-16 08:44] VITALS: BP 113/67
[2024-02-16] MEDS: Propranolol HCL 20 MG TABLET PO ×3 (08:44→21:25)
[2024-02-16] MEDS: Cariprazine HCl 1.5 MG CAPSULE 4.5 MG PO (08:44)
[2024-02-16] MEDS: hydrOXYzine HCL 50 MG TABLET PO ×3 (08:45→21:24)
[2024-02-16] MEDS: Gabapentin 600 MG TABLET PO ×3 (08:45→21:24)
[2024-02-16] MEDS: Gabapentin 100 MG CAPSULE PO ×3 (08:45→21:25)
[2024-02-16] MEDS: Multivitamin TABLET 1 TAB PO (08:45)
[2024-02-16] MEDS: Nicotine Polacrilex 2 MG GUM 4 MG BUCCAL (08:50)
[2024-02-16 16:25] VITALS: BP 115/77; PULSE 96
--- NOTE | 2024-02-16 16:45 | HO.PSYCHPN ---
Subjective Subjective Date of Service: 02/16/24 Reason For Visit: LSD ingestion, SI Subjective Notes: Conditional Voluntary Healthcare Proxy: No Guardianship: No Medical Problems Affecting Mental Status: No Interim History: Planning discharge to [facility] for 02/19. Lamictal increased to 50 mg today. Latex allergy added to profile. Discussed discord with parents. Pt reports this has occurred before and parents have needed to take a break from pt's issues then have returned to be a good support. Anxious, I am thinking about my problems. Medication Compliance: Yes Side effects from medications: No Attending Groups: Intermittent Review of Systems Acute medical concerns: No Medical Review of Systems: unchanged Review of Systems Review of Systems Yes all other systems are reviewed and are negative Mental Status Exam Mental Status Exam Patient Appearance: Appropriate Patient Orientation: Person, Place, Time and Situation Level of Consciousness: Alert Patient Behavior: Talkative and Good Eye Contact Mood Description: Withdrawn, Depressed, Anxious and Apprehensive Affect Description: Anxious, Flat and Apprehensive Patient Cognition Impaired: No Speech Pattern: Spontaneous Speech Memory Description: Intact Hallucinations: None Delusions: Not Present Thought Process: Rumination Thought Content: positive for Circumstantial and positive for Perseveration Depressive Symptoms: Thoughts of /Suicide (denies) Judgement: Fair Diagnostics Vital Signs (24Hr): Vital Signs - 24 hr 02/15/24 20:00 02/16/24 08:00 02/16/24 08:44 Temperature 97.0 F 97.9 F Pulse Rate 68 74 Blood Pressure 111/58 L 113/67 113/67 Pulse Oximetry 94 95 Oxygen Delivery Method Room Air Room Air 02/16/24 16:25 Temperature Pulse Rate 96 Blood Pressure 115/77 Pulse Oximetry Oxygen Delivery Method BMI result Body Mass Index 37.3 Labs 02/10/24 20:04 02/10/24 20:04 Medications Medications Current Medications Acetaminophen (Acetaminophen 325 Mg Tablet) 650 mg PO Q6H PRN PRN Reason: Headache/Pain Mild Scale (1-3) Last Admin: 02/14/24 20:51 Dose: 650 mg Al Hydroxide/Mg Hydroxide (Magnesium Hydrox/Alum Hydrox 30 Ml Oral.Susp) 30 ml PO Q6H PRN PRN Reason: Heartburn/Nausea Cariprazine (Cariprazine Hcl 1.5 Mg Capsule) 4.5 mg PO DAILY [facility] Last Admin: 02/16/24 08:44 Dose: 4.5 mg Gabapentin (Gabapentin 600 Mg Tablet) 600 mg PO TID [facility] Last Admin: 02/16/24 16:25 Dose: 600 mg Gabapentin (Gabapentin 100 Mg Capsule) 100 mg PO TID [facility] Last Admin: 02/16/24 16:25 Dose: 100 mg Hydroxyzine HCl (Hydroxyzine Hcl 50 Mg Tablet) 50 mg PO QID [facility] Last Admin: 02/16/24 16:25 Dose: 50 mg Lamotrigine (Lamotrigine 25 Mg Tablet) 25 mg PO BEDTIME [facility] Last Admin: 02/15/24 21:11 Dose: 25 mg Magnesium Hydroxide (Milk Of Magnesia 30 Ml Oral.Susp) 30 ml PO DAILY PRN PRN Reason: Constipation Melatonin (Melatonin 3 Mg Tablet) 9 mg PO BEDTIME [facility] Last Admin: 02/15/24 21:09 Dose: 9 mg Miconazole Nitrate (Miconazole Nitrate 2% Powder 85 Gm Bottle) 1 appl TOPICAL BID [facility]; Protocol Last Admin: 02/16/24 08:46 Dose: Not Given Mirtazapine (Mirtazapine 7.5 Mg Tablet) 7.5 mg PO BEDTIME [facility] Last Admin: 02/15/24 21:10 Dose: 7.5 mg Multivitamins/Vitamin C (Multivitamin Tablet) 1 tab PO DAILY [facility] Last Admin: 02/16/24 08:45 Dose: 1 tab Nicotine (Nicotine 21 Mg Patch.Td24) 21 mg TRANSDERMA DAILY [facility] Last Admin: 02/16/24 08:43 Dose: 21 mg Nicotine Polacrilex (Nicotine Polacrilex 2 Mg Gum) 4 mg BUCCAL Q2H PRN PRN Reason: Nicotine Cravings Last Admin: 02/16/24 08:50 Dose: 4 mg Prazosin HCl (Prazosin Hcl 1 Mg Capsule) 1 mg PO BEDTIME [facility]; Protocol Last Admin: 02/15/24 21:11 Dose: 1 mg Propranolol HCl (Propranolol Hcl 20 Mg Tablet) 20 mg PO TID [facility]; Protocol Last Admin: 02/16/24 16:25 Dose: 20 mg Quetiapine Fumarate (Quetiapine Fumarate 50 Mg Tablet) 50 mg PO TID PRN PRN Reason: agitation, anxiety Last Admin: 02/15/24 13:24 Dose: 50 mg Allergies Allergies Allergy/AdvReac Type Severity Reaction Status Date / Time bupropion [From Wellbutrin] AdvReac Severe agitation Verified 02/13/24 17:17 Assessment & Plan Assessment & Plan (1) Bipolar disorder: Status: Acute Code(s): F31.9 - Bipolar disorder, unspecified (2) Polysubstance use disorder: Status: Acute Code(s): F19.90 - Other psychoactive substance use, unspecified, uncomplicated (3) ADHD: Status: Acute Code(s): F90.9 - Attention-deficit hyperactivity disorder, unspecified type Plan Bipolar Disorder, ADHD, Polysubstance Use Disorder. Plan: Admit, CV 15 minute checks DC Abilify Increase Vraylar to 4.5 mg daily Collateral Contact Discharge planning 02/14/24 Seroquel prn for anxiety 02/15/24 Discontinue Trazodone Mirtazapine 7.5 mg HS 02/16/24: Increase Lamictal to 50 mg HS Reason for continued inpatient stay Substantial Risk for: rapid decompensation Time Spent With Patient Time: Total time managing care of this patient today ____ minutes.
[2024-02-16] MEDS: QUEtiapine Fumarate 50 MG TABLET PO (18:34)
[2024-02-16 20:00] VITALS: BP 119/63; PULSE 79; RESP 14; TEMP 36.4; O2SAT 95
[2024-02-16] MEDS: Mirtazapine 7.5 MG TABLET PO (21:24)
[2024-02-16] MEDS: lamoTRIgine 25 MG TABLET 50 MG PO (21:24)
[2024-02-16] MEDS: Prazosin HCL 1 MG CAPSULE PO (21:25)
[2024-02-16] MEDS: Melatonin 3 MG TABLET 9 MG PO (21:25)
[2024-02-17] MEDS: QUEtiapine Fumarate 50 MG TABLET PO ×2 (03:47→17:44)
[2024-02-17 08:00] VITALS: BP 123/78; PULSE 79; RESP 16; TEMP 36.4; O2SAT 94
[2024-02-17] MEDS: Gabapentin 600 MG TABLET PO ×3 (08:53→20:13)
[2024-02-17] MEDS: Gabapentin 100 MG CAPSULE PO ×3 (08:53→20:13)
[2024-02-17] MEDS: Multivitamin TABLET 1 TAB PO (08:53)
[2024-02-17] MEDS: Propranolol HCL 20 MG TABLET PO ×3 (08:53→20:13)
[2024-02-17] MEDS: Cariprazine HCl 1.5 MG CAPSULE 4.5 MG PO (08:54)
[2024-02-17] MEDS: Nicotine 21 MG PATCH.TD24 TRANSDERMA (08:54)
[2024-02-17] MEDS: Miconazole Nitrate 2% Powder 85 GM Bottle 1 APPL TOPICAL ×2 (08:56→20:15)
--- NOTE | 2024-02-17 10:14 | HO.PSYCHPN ---
Subjective Subjective Date of Service: 02/17/24 Reason For Visit: LSD ingestion, SI Interim History: Patient reports he didn't sleep well last night. Depression and anxiety better controlled. He denies side effects with his medications regimen. Lamictal increased to 50 mg yesterday Visible on the unit. Utilizing headphones for comfort. Denies SI/HI/AVH. Medication Compliance: Yes Review of Systems Review of Systems Yes all other systems are reviewed and are negative Constitutional: Reports no additional constitutional complaints, Denies chills, Denies fever(s) and Denies night sweats Eyes: Reports no additional eye complaints, Denies blurry vision, Denies change in vision, Denies diplopia, Denies eye discharge, Denies loss of vision and Denies eye pain Denies dizziness Cardiovascular: Reports no additional cardiovascular complaints, Denies chest pain, Denies lightheadedness, Denies Loss of Consciousness and Denies dyspnea Respiratory: Reports no additional respiratory complaints and Denies dyspnea Gastrointestinal: Reports no additional gastrointestinal complaints, Denies abdominal pain, Denies melena, Denies hematochezia, Denies change in bowel habits and Denies change in stool character Genitourinary: Reports no additional male genitourinary complaints, Denies hematuria, Denies oliguria, Denies difficulty urinating, Denies dysuria, Denies urinary frequency, Denies urinary hesitancy, Denies urinary incontinence and Denies urinary urgency Musculoskeletal: Reports no additional musculoskeletal complaints, Denies numbness and Denies tingling Denies dizziness, Denies loss of vision, Denies numbness and Denies tingling Psychiatric: Denies homicidal ideation and Reports suicidal ideation Endocrine: Reports no additional endocrine complaints Hematologic/Lymphatic: Reports no additional hematologic/lymphatic complaints Allergic/Immunologic: Reports no additional allergic/immunologic complaints Mental Status Exam Mental Status Exam Patient Appearance: Appropriate Patient Orientation: Person, Place, Time and Situation Level of Consciousness: Alert Patient Behavior: Talkative and Good Eye Contact Mood Description: Withdrawn, Depressed, Anxious and Apprehensive Affect Description: Anxious, Flat and Apprehensive Patient Cognition Impaired: No Speech Pattern: Spontaneous Speech Memory Description: Intact Diagnostics Vital Signs (24Hr): Vital Signs - 24 hr 02/16/24 16:25 02/16/24 20:00 02/17/24 08:00 Temperature 97.5 F 97.6 F Pulse Rate 96 79 79 Respiratory Rate 14 16 Blood Pressure 115/77 119/63 123/78 Pulse Oximetry 95 94 Oxygen Delivery Method Room Air Room Air BMI result Body Mass Index 37.3 Labs 02/10/24 20:04 02/10/24 20:04 Medications Medications Current Medications Acetaminophen (Acetaminophen 325 Mg Tablet) 650 mg PO Q6H PRN PRN Reason: Headache/Pain Mild Scale (1-3) Last Admin: 02/14/24 20:51 Dose: 650 mg Al Hydroxide/Mg Hydroxide (Magnesium Hydrox/Alum Hydrox 30 Ml Oral.Susp) 30 ml PO Q6H PRN PRN Reason: Heartburn/Nausea Cariprazine (Cariprazine Hcl 1.5 Mg Capsule) 4.5 mg PO DAILY [facility] Last Admin: 02/17/24 08:54 Dose: 4.5 mg Gabapentin (Gabapentin 600 Mg Tablet) 600 mg PO TID [facility] Last Admin: 02/17/24 08:53 Dose: 600 mg Gabapentin (Gabapentin 100 Mg Capsule) 100 mg PO TID [facility] Last Admin: 02/17/24 08:53 Dose: 100 mg Hydroxyzine HCl (Hydroxyzine Hcl 50 Mg Tablet) 50 mg PO QID PRN PRN Reason: Anxiety Lamotrigine (Lamotrigine 25 Mg Tablet) 50 mg PO BEDTIME [facility] Last Admin: 02/16/24 21:24 Dose: 50 mg Magnesium Hydroxide (Milk Of Magnesia 30 Ml Oral.Susp) 30 ml PO DAILY PRN PRN Reason: Constipation Melatonin (Melatonin 3 Mg Tablet) 9 mg PO BEDTIME [facility] Last Admin: 02/16/24 21:25 Dose: 9 mg Miconazole Nitrate (Miconazole Nitrate 2% Powder 85 Gm Bottle) 1 appl TOPICAL BID [facility]; Protocol Last Admin: 02/17/24 08:56 Dose: 1 appl Mirtazapine (Mirtazapine 7.5 Mg Tablet) 7.5 mg PO BEDTIME [facility] Last Admin: 02/16/24 21:24 Dose: 7.5 mg Multivitamins/Vitamin C (Multivitamin Tablet) 1 tab PO DAILY [facility] Last Admin: 02/17/24 08:53 Dose: 1 tab Nicotine (Nicotine 21 Mg Patch.Td24) 21 mg TRANSDERMA DAILY [facility] Last Admin: 02/17/24 08:54 Dose: 21 mg Nicotine Polacrilex (Nicotine Polacrilex 2 Mg Gum) 4 mg BUCCAL Q2H PRN PRN Reason: Nicotine Cravings Last Admin: 02/16/24 08:50 Dose: 4 mg Prazosin HCl (Prazosin Hcl 1 Mg Capsule) 1 mg PO BEDTIME [facility]; Protocol Last Admin: 02/16/24 21:25 Dose: 1 mg Propranolol HCl (Propranolol Hcl 20 Mg Tablet) 20 mg PO TID [facility]; Protocol Last Admin: 02/17/24 08:53 Dose: 20 mg Quetiapine Fumarate (Quetiapine Fumarate 50 Mg Tablet) 50 mg PO TID PRN PRN Reason: agitation, anxiety Last Admin: 02/17/24 03:47 Dose: 50 mg Allergies Allergies Allergy/AdvReac Type Severity Reaction Status Date / Time latex Allergy Intermediate Rash Verified 02/16/24 16:49 bupropion [From Wellbutrin] AdvReac Severe agitation Verified 02/13/24 17:17 Assessment & Plan Assessment & Plan (1) Bipolar disorder: Status: Acute Code(s): F31.9 - Bipolar disorder, unspecified (2) Polysubstance use disorder: Status: Acute Code(s): F19.90 - Other psychoactive substance use, unspecified, uncomplicated (3) ADHD: Status: Acute Code(s): F90.9 - Attention-deficit hyperactivity disorder, unspecified type Plan Bipolar Disorder, ADHD, Polysubstance Use Disorder. Plan: Admit, CV 15 minute checks DC Abilify Increase Vraylar to 4.5 mg daily Collateral Contact Discharge planning 02/14/24 Seroquel prn for anxiety 02/15/24 Discontinue Trazodone Mirtazapine 7.5 mg HS 02/16/24: Increase Lamictal to 50 mg HS 02/16: Increase Remeron to 15 mg HS. Reason for continued inpatient stay Substantial Risk for: inability to function and rapid decompensation Time Spent With Patient Time: Total time managing care of this patient today ____ minutes.
[2024-02-17 14:25] VITALS: BP 120/59; PULSE 88
[2024-02-17 14:26] VITALS: BP 114/58; PULSE 90
[2024-02-17 15:23] VITALS: BP 131/64; PULSE 92
[2024-02-17 20:00] VITALS: BP 125/66; PULSE 65; RESP 16; TEMP 36.3; O2SAT 94
[2024-02-17] MEDS: Melatonin 3 MG TABLET 9 MG PO (20:13)
[2024-02-17] MEDS: Mirtazapine 15 MG TABLET PO (20:13)
[2024-02-17] MEDS: Prazosin HCL 1 MG CAPSULE PO (20:13)
[2024-02-17] MEDS: lamoTRIgine 25 MG TABLET 50 MG PO (20:13)
[2024-02-18] MEDS: QUEtiapine Fumarate 50 MG TABLET PO ×2 (05:32→18:20)
[2024-02-18 08:00] VITALS: BP 114/53; PULSE 68; RESP 16; TEMP 36.8; O2SAT 95
[2024-02-18 09:06] VITALS: BP 120/65
[2024-02-18] MEDS: Nicotine 21 MG PATCH.TD24 TRANSDERMA (09:08)
[2024-02-18] MEDS: Propranolol HCL 20 MG TABLET PO ×3 (09:09→20:36)
[2024-02-18] MEDS: Multivitamin TABLET 1 TAB PO (09:09)
[2024-02-18] MEDS: Cariprazine HCl 1.5 MG CAPSULE 4.5 MG PO (09:09)
[2024-02-18] MEDS: Gabapentin 600 MG TABLET PO ×3 (09:09→20:34)
[2024-02-18] MEDS: Gabapentin 100 MG CAPSULE PO ×3 (09:09→20:37)
--- NOTE | 2024-02-18 10:24 | P.PNPSI_ITS ---
Subjective Subjective Date of Service: 02/18/24 Reason For Visit: LSD ingestion, SI Interim History: Reports doing well. No complaints today. Increased Remeron well tolerated. Still woke up 4 AM but took Seroquel PRN and it helped. Visible on the unit. Utilizing headphones for comfort. Denies SI/HI/AVH. Review of Systems Review of Systems Yes all other systems are reviewed and are negative Constitutional: Reports no additional constitutional complaints, Denies chills, Denies fever(s) and Denies night sweats Eyes: Reports no additional eye complaints, Denies blurry vision, Denies change in vision, Denies diplopia, Denies eye discharge, Denies loss of vision and Denies eye pain Denies dizziness Cardiovascular: Reports no additional cardiovascular complaints, Denies chest pain, Denies lightheadedness, Denies Loss of Consciousness and Denies dyspnea Respiratory: Reports no additional respiratory complaints and Denies dyspnea Gastrointestinal: Reports no additional gastrointestinal complaints, Denies abdominal pain, Denies melena, Denies hematochezia, Denies change in bowel habits and Denies change in stool character Genitourinary: Reports no additional male genitourinary complaints, Denies hematuria, Denies oliguria, Denies difficulty urinating, Denies dysuria, Denies urinary frequency, Denies urinary hesitancy, Denies urinary incontinence and Denies urinary urgency Musculoskeletal: Reports no additional musculoskeletal complaints, Denies numbness and Denies tingling Denies dizziness, Denies loss of vision, Denies numbness and Denies tingling Psychiatric: Denies homicidal ideation and Reports suicidal ideation Endocrine: Reports no additional endocrine complaints Hematologic/Lymphatic: Reports no additional hematologic/lymphatic complaints Allergic/Immunologic: Reports no additional allergic/immunologic complaints Mental Status Exam Mental Status Exam Patient Appearance: Appropriate Patient Orientation: Person, Place, Time and Situation Level of Consciousness: Alert Patient Behavior: Talkative and Good Eye Contact Mood Description: Withdrawn, Depressed, Anxious and Apprehensive Affect Description: Anxious, Flat and Apprehensive Patient Cognition Impaired: No Speech Pattern: Spontaneous Speech Memory Description: Intact Diagnostics Vital Signs (24Hr): Vital Signs - 24 hr 02/17/24 14:25 02/17/24 14:26 02/17/24 15:23 Temperature Pulse Rate 88 90 92 Respiratory Rate Blood Pressure 120/59 L 114/58 L 131/64 Pulse Oximetry Oxygen Delivery Method 02/17/24 20:00 02/18/24 08:00 02/18/24 09:06 Temperature 97.3 F 98.3 F Pulse Rate 65 68 Respiratory Rate 16 16 Blood Pressure 125/66 114/53 L 120/65 Pulse Oximetry 94 95 Oxygen Delivery Method Room Air Room Air BMI result Body Mass Index 37.3 Labs 02/10/24 20:04 02/10/24 20:04 Medications Medications Current Medications Acetaminophen (Acetaminophen 325 Mg Tablet) 650 mg PO Q6H PRN PRN Reason: Headache/Pain Mild Scale (1-3) Last Admin: 02/14/24 20:51 Dose: 650 mg Al Hydroxide/Mg Hydroxide (Magnesium Hydrox/Alum Hydrox 30 Ml Oral.Susp) 30 ml PO Q6H PRN PRN Reason: Heartburn/Nausea Cariprazine (Cariprazine Hcl 1.5 Mg Capsule) 4.5 mg PO DAILY [facility] Last Admin: 02/18/24 09:09 Dose: 4.5 mg Gabapentin (Gabapentin 600 Mg Tablet) 600 mg PO TID [facility] Last Admin: 02/18/24 09:09 Dose: 600 mg Gabapentin (Gabapentin 100 Mg Capsule) 100 mg PO TID [facility] Last Admin: 02/18/24 09:09 Dose: 100 mg Hydroxyzine HCl (Hydroxyzine Hcl 50 Mg Tablet) 50 mg PO QID PRN PRN Reason: Anxiety Lamotrigine (Lamotrigine 25 Mg Tablet) 50 mg PO BEDTIME [facility] Last Admin: 02/17/24 20:13 Dose: 50 mg Magnesium Hydroxide (Milk Of Magnesia 30 Ml Oral.Susp) 30 ml PO DAILY PRN PRN Reason: Constipation Melatonin (Melatonin 3 Mg Tablet) 9 mg PO BEDTIME [facility] Last Admin: 02/17/24 20:13 Dose: 9 mg Miconazole Nitrate (Miconazole Nitrate 2% Powder 85 Gm Bottle) 1 appl TOPICAL BID [facility]; Protocol Last Admin: 02/18/24 09:10 Dose: Not Given Mirtazapine (Mirtazapine 15 Mg Tablet) 15 mg PO BEDTIME [facility] Last Admin: 02/17/24 20:13 Dose: 15 mg Multivitamins/Vitamin C (Multivitamin Tablet) 1 tab PO DAILY [facility] Last Admin: 02/18/24 09:09 Dose: 1 tab Nicotine (Nicotine 21 Mg Patch.Td24) 21 mg TRANSDERMA DAILY [facility] Last Admin: 02/18/24 09:08 Dose: 21 mg Nicotine Polacrilex (Nicotine Polacrilex 2 Mg Gum) 4 mg BUCCAL Q2H PRN PRN Reason: Nicotine Cravings Last Admin: 02/16/24 08:50 Dose: 4 mg Prazosin HCl (Prazosin Hcl 1 Mg Capsule) 1 mg PO BEDTIME [facility]; Protocol Last Admin: 02/17/24 20:13 Dose: 1 mg Propranolol HCl (Propranolol Hcl 20 Mg Tablet) 20 mg PO TID [facility]; Protocol Last Admin: 02/18/24 09:09 Dose: 20 mg Quetiapine Fumarate (Quetiapine Fumarate 50 Mg Tablet) 50 mg PO TID PRN PRN Reason: agitation, anxiety Last Admin: 02/18/24 05:32 Dose: 50 mg Allergies Allergies Allergy/AdvReac Type Severity Reaction Status Date / Time latex Allergy Intermediate Rash Verified 02/16/24 16:49 bupropion [From Wellbutrin] AdvReac Severe agitation Verified 02/13/24 17:17 Assessment & Plan Assessment & Plan (1) Bipolar disorder: Status: Acute Code(s): F31.9 - Bipolar disorder, unspecified (2) Polysubstance use disorder: Status: Acute Code(s): F19.90 - Other psychoactive substance use, unspecified, uncomplicated (3) ADHD: Status: Acute Code(s): F90.9 - Attention-deficit hyperactivity disorder, unspecified type Plan Bipolar Disorder, ADHD, Polysubstance Use Disorder. Plan: Admit, CV 15 minute checks DC Abilify Increase Vraylar to 4.5 mg daily Collateral Contact Discharge planning 02/14/24 Seroquel prn for anxiety 02/15/24 Discontinue Trazodone Mirtazapine 7.5 mg HS 02/16/24: Increase Lamictal to 50 mg HS 02/16: Increase Remeron to 15 mg HS. 02/17: continue current management and treatment plan. Reason for continued inpatient stay Substantial Risk for: harm to self, inability to function and rapid decompensation Time Spent With Patient Time: Total time managing care of this patient today ____ minutes.
[2024-02-18 15:02] VITALS: BP 123/68; PULSE 85
[2024-02-18 20:00] VITALS: BP 117/64; PULSE 75; RESP 16; TEMP 36.7; O2SAT 93
[2024-02-18] MEDS: lamoTRIgine 25 MG TABLET 50 MG PO (20:34)
[2024-02-18 20:35] VITALS: BP 117/64
[2024-02-18] MEDS: Prazosin HCL 1 MG CAPSULE PO (20:35)
[2024-02-18] MEDS: Mirtazapine 15 MG TABLET PO (20:35)
[2024-02-18 20:36] VITALS: BP 117/64; PULSE 84
[2024-02-18] MEDS: Melatonin 3 MG TABLET 9 MG PO (20:36)
[2024-02-19] MEDS: QUEtiapine Fumarate 50 MG TABLET PO ×3 (00:20→18:13)
[2024-02-19 08:00] VITALS: BP 119/71; PULSE 70; RESP 16; TEMP 36.7; O2SAT 93
[2024-02-19] MEDS: Cariprazine HCl 1.5 MG CAPSULE 4.5 MG PO (08:43)
[2024-02-19] MEDS: Propranolol HCL 20 MG TABLET PO ×3 (08:43→20:14)
[2024-02-19] MEDS: Gabapentin 600 MG TABLET PO ×3 (08:43→20:13)
[2024-02-19] MEDS: Multivitamin TABLET 1 TAB PO (08:43)
[2024-02-19] MEDS: Gabapentin 100 MG CAPSULE PO ×3 (08:43→20:14)
[2024-02-19] MEDS: Nicotine 21 MG PATCH.TD24 TRANSDERMA (08:43)
--- NOTE | 2024-02-19 10:01 | HO.PSYCHPN ---
Subjective Subjective Date of Service: 02/19/24 Reason For Visit: LSD ingestion, SI Subjective Notes: Conditional Voluntary Interim History: Pt reports sleep is as usual- wakes up at around 4am and then goes back to sleep later. Pt denies SI/HI. No VH/AH. No overt delusional content noted or reported. He is mostly in room awaiting transfer to [facility]. Review of Systems Review of Systems Yes all other systems are reviewed and are negative Constitutional: Reports no additional constitutional complaints, Denies chills, Denies fever(s) and Denies night sweats Eyes: Reports no additional eye complaints, Denies blurry vision, Denies change in vision, Denies diplopia, Denies eye discharge, Denies loss of vision and Denies eye pain Denies dizziness Cardiovascular: Reports no additional cardiovascular complaints, Denies chest pain, Denies lightheadedness, Denies Loss of Consciousness and Denies dyspnea Respiratory: Reports no additional respiratory complaints and Denies dyspnea Gastrointestinal: Reports no additional gastrointestinal complaints, Denies abdominal pain, Denies melena, Denies hematochezia, Denies change in bowel habits and Denies change in stool character Genitourinary: Reports no additional male genitourinary complaints, Denies hematuria, Denies oliguria, Denies difficulty urinating, Denies dysuria, Denies urinary frequency, Denies urinary hesitancy, Denies urinary incontinence and Denies urinary urgency Musculoskeletal: Reports no additional musculoskeletal complaints, Denies numbness and Denies tingling Denies dizziness, Denies loss of vision, Denies numbness and Denies tingling Psychiatric: Denies homicidal ideation and Reports suicidal ideation Endocrine: Reports no additional endocrine complaints Hematologic/Lymphatic: Reports no additional hematologic/lymphatic complaints Allergic/Immunologic: Reports no additional allergic/immunologic complaints Mental Status Exam Mental Status Exam Patient Appearance: Appropriate Patient Orientation: Person, Place, Time and Situation Level of Consciousness: Alert Patient Behavior: Talkative and Good Eye Contact Mood Description: Withdrawn, Depressed, Anxious and Apprehensive Affect Description: Anxious, Flat and Apprehensive Patient Cognition Impaired: No Speech Pattern: Spontaneous Speech Memory Description: Intact Diagnostics Vital Signs (24Hr): Vital Signs - 24 hr 02/18/24 15:02 02/18/24 20:00 02/18/24 20:35 Temperature 98.1 F Pulse Rate 85 75 Respiratory Rate 16 Blood Pressure 123/68 117/64 117/64 Pulse Oximetry 93 Oxygen Delivery Method Room Air 02/18/24 20:36 02/19/24 08:00 Temperature 98.1 F Pulse Rate 84 70 Respiratory Rate 16 Blood Pressure 117/64 119/71 Pulse Oximetry 93 Oxygen Delivery Method Room Air BMI result Body Mass Index 37.3 Labs 02/10/24 20:04 02/10/24 20:04 Medications Medications Current Medications Acetaminophen (Acetaminophen 325 Mg Tablet) 650 mg PO Q6H PRN PRN Reason: Headache/Pain Mild Scale (1-3) Last Admin: 02/14/24 20:51 Dose: 650 mg Al Hydroxide/Mg Hydroxide (Magnesium Hydrox/Alum Hydrox 30 Ml Oral.Susp) 30 ml PO Q6H PRN PRN Reason: Heartburn/Nausea Cariprazine (Cariprazine Hcl 1.5 Mg Capsule) 4.5 mg PO DAILY [facility] Last Admin: 02/19/24 08:43 Dose: 4.5 mg Gabapentin (Gabapentin 600 Mg Tablet) 600 mg PO TID [facility] Last Admin: 02/19/24 08:43 Dose: 600 mg Gabapentin (Gabapentin 100 Mg Capsule) 100 mg PO TID [facility] Last Admin: 02/19/24 08:43 Dose: 100 mg Hydroxyzine HCl (Hydroxyzine Hcl 50 Mg Tablet) 50 mg PO QID PRN PRN Reason: Anxiety Lamotrigine (Lamotrigine 25 Mg Tablet) 50 mg PO BEDTIME [facility] Last Admin: 02/18/24 20:34 Dose: 50 mg Magnesium Hydroxide (Milk Of Magnesia 30 Ml Oral.Susp) 30 ml PO DAILY PRN PRN Reason: Constipation Melatonin (Melatonin 3 Mg Tablet) 9 mg PO BEDTIME [facility] Last Admin: 02/18/24 20:36 Dose: 9 mg Miconazole Nitrate (Miconazole Nitrate 2% Powder 85 Gm Bottle) 1 appl TOPICAL BID [facility]; Protocol Last Admin: 02/19/24 09:03 Dose: Not Given Mirtazapine (Mirtazapine 15 Mg Tablet) 15 mg PO BEDTIME [facility] Last Admin: 02/18/24 20:35 Dose: 15 mg Multivitamins/Vitamin C (Multivitamin Tablet) 1 tab PO DAILY [facility] Last Admin: 02/19/24 08:43 Dose: 1 tab Nicotine (Nicotine 21 Mg Patch.Td24) 21 mg TRANSDERMA DAILY [facility] Last Admin: 08/12/24 08:43 Dose: 21 mg Nicotine Polacrilex (Nicotine Polacrilex 2 Mg Gum) 4 mg BUCCAL Q2H PRN PRN Reason: Nicotine Cravings Last Admin: 02/16/24 08:50 Dose: 4 mg Prazosin HCl (Prazosin Hcl 1 Mg Capsule) 1 mg PO BEDTIME [facility]; Protocol Last Admin: 02/18/24 20:35 Dose: 1 mg Propranolol HCl (Propranolol Hcl 20 Mg Tablet) 20 mg PO TID [facility]; Protocol Last Admin: 02/19/24 08:43 Dose: 20 mg Quetiapine Fumarate (Quetiapine Fumarate 50 Mg Tablet) 50 mg PO TID PRN PRN Reason: agitation, anxiety Last Admin: 02/19/24 00:20 Dose: 50 mg Allergies Allergies Allergy/AdvReac Type Severity Reaction Status Date / Time latex Allergy Intermediate Rash Verified 02/16/24 16:49 bupropion [From Wellbutrin] AdvReac Severe agitation Verified 02/13/24 17:17 Assessment & Plan Assessment & Plan (1) Bipolar disorder: Status: Acute Code(s): F31.9 - Bipolar disorder, unspecified (2) Polysubstance use disorder: Status: Acute Code(s): F19.90 - Other psychoactive substance use, unspecified, uncomplicated (3) ADHD: Status: Acute Code(s): F90.9 - Attention-deficit hyperactivity disorder, unspecified type Plan Bipolar Disorder, ADHD, Polysubstance Use Disorder. Plan: Admit, CV 15 minute checks DC Abilify Increase Vraylar to 4.5 mg daily Collateral Contact Discharge planning 02/14/24 Seroquel prn for anxiety 02/15/24 Discontinue Trazodone Mirtazapine 7.5 mg HS 02/16/24: Increase Lamictal to 50 mg HS 02/16: Increase Remeron to 15 mg HS. 02/17: continue current management and treatment plan. 02/18 continue tx. Reason for continued inpatient stay Substantial Risk for: inability to function Time Spent With Patient Time: Total time managing care of this patient today ____ minutes.
[2024-02-19 17:00] VITALS: BP 116/73; PULSE 87
[2024-02-19 20:00] VITALS: BP 144/92; PULSE 82; RESP 16; TEMP 36.7; O2SAT 93
[2024-02-19 20:14] VITALS: BP 144/92
[2024-02-19] MEDS: Prazosin HCL 1 MG CAPSULE PO (20:14)
[2024-02-19] MEDS: Melatonin 3 MG TABLET 9 MG PO (20:14)
[2024-02-19] MEDS: lamoTRIgine 25 MG TABLET 50 MG PO (20:14)
[2024-02-19] MEDS: Mirtazapine 15 MG TABLET PO (20:14)
[2024-02-19] MEDS: hydrOXYzine HCL 50 MG TABLET PO (23:23)
[2024-02-20] MEDS: QUEtiapine Fumarate 50 MG TABLET PO (05:23)
[2024-02-20 08:00] VITALS: BP 110/58; PULSE 86; RESP 17; TEMP 36.2; O2SAT 94
[2024-02-20] MEDS: Cariprazine HCl 1.5 MG CAPSULE 4.5 MG PO (08:29)
[2024-02-20 08:30] VITALS: PULSE 86
[2024-02-20] MEDS: Gabapentin 600 MG TABLET PO (08:30)
[2024-02-20] MEDS: Gabapentin 100 MG CAPSULE PO (08:30)
[2024-02-20] MEDS: Multivitamin TABLET 1 TAB PO (08:30)
[2024-02-20] MEDS: Propranolol HCL 20 MG TABLET PO (08:30)
[2024-02-20] MEDS: Nicotine 21 MG PATCH.TD24 TRANSDERMA (08:35)
--- NOTE | 2024-02-20 09:58 | P.DS_ITS ---
DS: Providers Provider Date of Service: 02/20/24 Date of admission: 02/12/24 12:15 Date of discharge: 02/20/24 Primary care physician: Unknown Physician DS: Diagnosis Discharge Diagnosis (1) Bipolar disorder: Status: Acute (2) Polysubstance use disorder: Status: Acute (3) ADHD: Status: Acute DS: Medications Discharge Medications Home Medications: Previous Rx's ?Medication ?Instructions ?Recorded cariprazine 4.5 mg capsule 4.5 mg PO DAILY #30 caps 02/20/24 gabapentin 100 mg capsule 100 mg PO TID #90 caps 02/20/24 gabapentin 600 mg tablet 600 mg PO TID #90 tabs 02/20/24 lamotrigine 25 mg tablet 50 mg (2 x 25 mg) PO BEDTIME #60 02/20/24 tabs melatonin 3 mg tablet 9 mg (3 x 3 mg) PO BEDTIME #90 tabs 02/20/24 mirtazapine 15 mg tablet 15 mg PO BEDTIME #30 tabs 02/20/24 multivitamin (Daily-Mariajose tablet) 1 tab PO DAILY #30 tabs 02/20/24 nicotine (polacrilex) 2 mg gum 4 mg buccal Q2H PRN Nicotine 02/20/24 Cravings #60 ea nicotine 21 mg/24 hr daily 21 mg transdermal DAILY #30 ea 02/20/24 transdermal patch prazosin 1 mg capsule 1 mg PO BEDTIME #30 caps 02/20/24 propranolol 20 mg tablet 20 mg PO TID #90 tabs 02/20/24 quetiapine 50 mg tablet 50 mg PO TID PRN agitation, 02/20/24 anxiety #90 tabs Mental Status Exam Mental Status Exam Narrative: Appearance: wearing Patient Appearance: Appropriate Patient Orientation: Person, Place, Time and Situation Level of Consciousness: Appropriate and Alert Patient Behavior: Appropriate, Cooperative and Good Eye Contact Mood Description: Calm (bright, non labile) Affect Description: Appropriate (congruent to reported mood) Patient Cognition Impaired: No Ability to Follow Directions: Good Speech Pattern: Clear, Appropriate and Spontaneous Speech Memory Description: Intact Hallucinations: None Delusions: Not Present Thought Process: Intact Thought Content: positive for Intact Judgement: Fair Judgement and Insight: fair x 2. DS: Summary Hospital Course Hospital Course: 33 yo male, history of bipolar disorder, ADHD, polysubstance use disorder to ER after taking LSD, sending his parents emails endorsing SI with plan and intent. Reports sobriety for 5 months, living at [facility] for ~2 months and is not satisfied with the program. Parents have custody of his daughter, Gina, age 12, and will not allow him contact with her and they have stopped talking with him, telling him he needs to manage his issues. States he became angry with them, cursed them was frustrated and wrote a suicide note as a cry for help. States he needs a sober house or [place] [facility] as [facility] is just not working for him. States his parents have told him he needs to figure out solutions to his issues and they feel victimized by pt's using substances Reports sleep and appetite are intact Hx andres ~8 years ago when on Prozac-gambling, sexually provocative, awake and talkative for several days SI-denies currently, hx SA when daughter's mother - OD Xanax, ETOH. Past Psychiatric History: IP: Pt believes 5 by history, the most recent being [facility] 4 months ago where he was using crystal meth was awake for 4 days and paranoid OP: CHD- new therapist [facility] and Dr. Langston Medical Evaluation Reviewed: Yes HOSPITAL COURSE On the unit, pt was admitted on a CV and placed on 15 minutes checks for safety. Pt was admitted under care of Elvia Zarate, refer to her noted for further information. On brief, after reviewing risks, benefits and alternative treatment options, pt was started on vraylar for mood stabilization. He was taper off abilify to due to lack of therapeutic efficacy. He was started on remeron for sleep, which he reported worked better than trazodone. His affect was gradually brighter, non labile. He was sleeping for most of the night, although waking up at around 4am, which he reported was his usual. He did not show any signs of psychosis or delusional content. He attended assigned groups and agreed to be referred to [facility]. He denied SI/HI several days prior to discharge. He was given narcan at time of discharged. There were no disruptive behaviors nor need for restraints. He was future oriented looking forward to be discharged to [facility]. Time Spent with Patient Time attestation: Total time managing care of this patient today ____ minutes. Discharge Plan Discharge Anticipated Discharge Date/Time: 02/20/24 09:46 Patient Disposition: Home, Self-Care Discharge Diagnosis: Bipolar Disorder Substance Use Disorder Referrals: Arabella: Elisa Jimenez (Therapy) [Other] - 03/07/24 8:45 am (Scheduled appointment with therapist Appointment in person at [facility]) Call your [employer] [Other] - 1 Week Discharge Medications: New nicotine (polacrilex) 2 mg Gum 4 mg buccal Q2H PRN (Reason: Nicotine Cravings) Qty: 60 0RF prazosin 1 mg Capsule 1 mg PO BEDTIME Qty: 30 0RF Protocol: Hold for SBP< HOLD for SBP < : 90 nicotine 21 mg/24 hr Patch 24 Hour 21 mg transdermal DAILY Qty: 30 0RF propranolol 20 mg Tablet 20 mg PO TID Qty: 90 0RF Protocol: Hold for SBP/HR < HOLD for SBP < : 90 HOLD for HR < : 60 cariprazine 4.5 mg capsule 4.5 mg PO DAILY Qty: 30 0RF gabapentin 600 mg Tablet 600 mg PO TID Qty: 90 0RF lamotrigine 25 mg Tablet 50 mg PO BEDTIME Qty: 60 0RF gabapentin 100 mg Capsule 100 mg PO TID Qty: 90 0RF multivitamin [Daily-Mariajose] Tablet 1 tab PO DAILY Qty: 30 0RF melatonin 3 mg Tablet 9 mg PO BEDTIME Qty: 90 0RF mirtazapine 15 mg Tablet 15 mg PO BEDTIME Qty: 30 0RF quetiapine 50 mg Tablet 50 mg PO TID PRN (Reason: agitation, anxiety) Qty: 90 0RF Discontinued multivitamin [Multi-Vitamin] Tablet 1 tab PO DAILY gabapentin 600 mg Tablet 600 mg PO TID prazosin 1 mg Capsule 1 mg PO BEDTIME propranolol 20 mg Tablet 20 mg PO TID aripiprazole [Abilify] 15 mg Tablet 15 mg PO DAILY Vraylar 3 mg Capsule 3 mg PO DAILY melatonin 3 mg Capsule 9 mg PO BEDTIME Discharge Orders: Discharge Order (Routine); Ordered 02/20/24 Ordered By: Chantale Turk Diet: Regular diet Activity on Discharge: As tolerated Stand Alone Forms: Patient Portal Discharge page, Community Support Print Language: Citizen Of [place] Care Plan Goals: 1. Maintain mood 2. No SI/HI 3.Harm reduction narcan given on discharge Health Concerns: Follow up with PCP Plan of Treatment: take medications as prescribed go to nearest ED or call 911 in event of emergency Assessment: Pt with brighter affect, non labile. No SI/HI. No psychosis or delusions. Sleeping and eating well. Future oriented. No behavioral concerns. Discharge Date/Time: 02/20/24 11:25
[2024-02-20] MEDS: Naloxone HCl Nasal TAKE HOME 4 MG SPRAY 8 MG NOSTRILALT (11:06)
== END 2024-02-20 11:25 | disposition home or self-care (01) | DRG 753 ==
LOC: HO.ED 20:37 → HO.PM5 02-12 12:32
PROVIDERS: Admitting Provider Clinical Nurse Specialist Psychiatric/Mental Health, Adult; Emergency Provider Emergency Medicine; Visit Provider Clinical Nurse Specialist Psychiatric/Mental Health, Adult
DX: F31.9 Bipolar disorder, unspecified (principal); R45.851 Suicidal ideations; F17.210 Nicotine dependence, cigarettes, uncomplicated; F19.90 Other psychoactive substance use, unspecified, uncomplicated; F90.9 Attention-deficit hyperactivity disorder, unspecified type; Z71.6 Tobacco abuse counseling; Z91.040 Latex allergy status; Z79.899 Other long term (current) drug therapy
CPT/HCPCS: 36415; 80053; 80061; 80143; 80179; 80307; 81003; 82607; 82746; 83036; 83735; 84439; 84443; 85025; 93005; 99285; S9485

== ENCOUNTER → 2024-02-10 17:52 | Outpatient (BNV) | payer OTHER, SELFPAY | PROVIDERS: Emergency Provider Emergency Medicine; Visit Provider Internal Medicine Cardiovascular Disease | DX: I49.8 Other specified cardiac arrhythmias (principal) | CPT/HCPCS: 93010 ==

== ENCOUNTER → 2024-02-12 12:15 | Outpatient (BNV) | payer OTHER, SELFPAY | PROVIDERS: Admitting Provider Clinical Nurse Specialist Psychiatric/Mental Health, Adult; Emergency Provider Emergency Medicine; Visit Provider Clinical Nurse Specialist Psychiatric/Mental Health, Adult | DX: F31.4 Bipolar disorder, current episode depressed, severe, without psychotic features (principal); F19.90 Other psychoactive substance use, unspecified, uncomplicated; F90.9 Attention-deficit hyperactivity disorder, unspecified type | CPT/HCPCS: 90792; 99231; 99232; 99238 ==